=== PATIENT | female | born 1965 | race Caucasian/White ===

== ENCOUNTER → 2018-04-05 | Outpatient (CLI) | payer OTHER ==
[~2018-04-05] MED LIST: CALCIUM PO; FISHOIL PO; MAGNES PO; NEPHROCAPS SOFT1 CAP PO; NIACIN 500 MG500 M1 PO; SYNTHROID PO
== END ==
LOC: M.RAD 09:35
DX: J18.9 Pneumonia, unspecified organism (principal)

== ENCOUNTER → 2018-04-19 | Outpatient (CLI) | payer OTHER | LOC: M.RAD 09:46 | DX: J18.9 Pneumonia, unspecified organism (principal) ==

== ENCOUNTER → 2018-07-28 | Outpatient (CLI) | payer OTHER ==
[2018-07-28 10:42] LABS: ABSOLUTE BASOPHILS 0.1 thou/uL (0.0-0.2); ABSOLUTE EOSINOPHILS 0.2 thou/uL (0.0-0.7); ABSOLUTE LYMPHOCYTES 1.7 thou/uL (0.8-5.3); ABSOLUTE MONOCYTES 0.3 thou/uL (0.0-1.2); ABSOLUTE NEUTROPHILS 3.2 thou/uL (1.6-8.1); BASOPHILS 1.1 %; EOSINOPHILS 4.2 %; HEMATOCRIT 39.7 % (37.0-47.0); HEMOGLOBIN 13.9 gm/dL (12.0-15.0); LYMPHOCYTES 30.1 %; MCV 97.3 fL (80.0-100.0); MPV 7.6 fl. (7.2-11.1); NUCLEATED RBCS 0 /100WBC; PLATELET COUNT* 279 thou/uL (150-400); POLYS 58.6 %; RBC 4.08 mil/uL (4.20-5.00); RDW-CV 13.4 % (10.5-14.5); WBC 5.5 thou/uL (4.0-11.0)
[2018-07-28 10:55] LABS: ALBUMIN 4.3 g/dL (3.4-5.0); ALKALINE PHOSPHATASE 52 U/L (46-116); ANION GAP 12 mmol/L (7-16); BUN 20 mg/dL (7-18); CALCIUM 10.1 mg/dL (8.5-10.1); CHLORIDE 101 mmol/L (98-107); CHOLESTEROL 247 mg/dL (<200); CO2 25 mmol/L (21-32); GLUCOSE 111 mg/dL (70-99); HDL CHOLESTEROL 79 mg/dL (>40); LDL CHOLESTEROL 147 mg/dL (<100); POTASSIUM 4.1 mmol/L (3.5-5.1); SERUM ASSESSMENT Clear; SGOT 20 U/L (15-37); SGPT 31 U/L (30-65); SODIUM 138 mmol/L (136-145); TC:HDL 3.1 Ratio (Not establshd); TOTAL BILIRUBIN 0.5 mg/dL (<0.1-1.0); TOTAL PROTEIN 8.4 g/dL (6.4-8.2); TRIGLYCERIDE 106 mg/dL (<150); VLDL 21 mg/dL (<40)
== END ==
LOC: M.LAB 10:24
PROVIDERS: Family Medicine
DX: I10 Essential (primary) hypertension (principal); E78.2 Mixed hyperlipidemia; E03.9 Hypothyroidism, unspecified; K92.1 Melena; Z87.891 Personal history of nicotine dependence

== ENCOUNTER → 2018-11-30 | Outpatient (CLI) | payer OTHER ==
[2018-11-30 16:52] LABS: ALBUMIN 4.2 g/dL (3.4-5.0); ALKALINE PHOSPHATASE 104 U/L (46-116); CHOLESTEROL 225 mg/dL (<200); DIRECT BILIRUBIN 0.1 mg/dL (<0.1-0.3); HDL CHOLESTEROL 65 mg/dL (>40); LDL CHOLESTEROL 109 mg/dL (<100); SGOT 25 U/L (15-37); SGPT 42 U/L (30-65); TC:HDL 3.5 Ratio (Not establshd); TOTAL BILIRUBIN 0.4 mg/dL (<0.1-1.0); TOTAL PROTEIN 8.4 g/dL (6.4-8.2); TRIGLYCERIDE 256 mg/dL (<150); VLDL 51 mg/dL (<40)
[2018-11-30 16:53] LABS: SERUM ASSESSMENT Clear
[2018-12-01 06:10] LABS: LDL (DIRECT) CHOL 127 mg/dL (0-99)
== END ==
LOC: M.LAB 16:28
PROVIDERS: Family Medicine
DX: I10 Essential (primary) hypertension (principal); E78.2 Mixed hyperlipidemia; E03.9 Hypothyroidism, unspecified

== ENCOUNTER 2019-04-04 11:28 | Emergency (ER) | payer OTHER ==
[~2019-04-04] VITALS: Ht 162.6 cm; Wt 77.1 kg
[2019-04-04] MEDS ORDERED: ALPRAZOLAM 0.0.25 M1 PO (11:43)
[2019-04-04] MEDS ORDERED: CYMBALTA30 MG PO (11:43)
[2019-04-04] MEDS ORDERED: ZESTRIL10 MG PO (11:44)
[2019-04-04] MEDS ORDERED: ZETIA10 MG PO (11:44)
[2019-04-04] MEDS ORDERED: LIVALO2 MG PO (11:45)
[2019-04-04] MEDS ORDERED: OMEPRAZOLE40 MG PO (11:45)
[2019-04-04] MEDS ORDERED: [UNRECOGNIZED DRUG - OTHER] PO (11:45)
[2019-04-04] MEDS ORDERED: CARAFATE1 GM PO (11:45)
[2019-04-04 12:13] LABS: ABSOLUTE BASOPHILS 0.1 thou/uL (0.0-0.2); ABSOLUTE EOSINOPHILS 0.2 thou/uL (0.0-0.7); ABSOLUTE LYMPHOCYTES 2.5 thou/uL (0.8-5.3); ABSOLUTE MONOCYTES 0.4 thou/uL (0.0-1.2); ABSOLUTE NEUTROPHILS 3.2 thou/uL (1.6-8.1); BASOPHILS 1.1 %; EOSINOPHILS 2.8 %; HEMATOCRIT 37.6 % (37.0-47.0); HEMOGLOBIN 13.3 gm/dL (12.0-15.0); LYMPHOCYTES 39.6 %; MCH 33.4 pg (26.0-34.0); MCHC 35.3 g/dL (28.0-37.0); MCV 94.5 fL (80.0-100.0); MONOCYTES 5.6 %; MPV 7.9 fl. (7.2-11.1); NUCLEATED RBCS 0 /100WBC; PLATELET COUNT* 246 thou/uL (150-400); POLYS 50.9 %; RBC 3.98 mil/uL (4.20-5.00); RDW-CV 13.1 % (10.5-14.5); WBC 6.3 thou/uL (4.0-11.0)
[2019-04-04 12:20] LABS: PROTIME 10.2 Seconds (9.20-11.50)
[2019-04-04 12:29] LABS: CALCIUM 9.2 mg/dL (8.5-10.1); CREATININE 0.7 mg/dL (0.6-1.3); POTASSIUM 3.8 mmol/L (3.5-5.1)
[2019-04-04 12:43] LABS: ALBUMIN 3.9 g/dL (3.4-5.0); TOTAL BILIRUBIN 0.6 mg/dL (<0.1-1.0); TOTAL PROTEIN 7.5 g/dL (6.4-8.2)
[2019-04-04 12:57] LABS: INFLUENZA A ANTIGEN Negative (Negative); INFLUENZA B ANTIGEN Negative (Negative)
--- NOTE | 2019-04-04 15:42 | EKG ---
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: : 1965 Requested By: Jeffrey Marquez Order Number: [id number] MD: Amarjit Knott Measurements Intervals [place] Rate: 82 P: 41 AK: 146 QRS: 31 QRSD: 115 T: 19 QT: 379 QTc: 443 Interpretive Statements Sinus rhythm Nonspecific intraventricular conduction delay Borderline T abnormalities, anterior leads Baseline wander in lead(s) V5 No previous ECG available for comparison Electronically Signed On 04-04-2019 15:42:14 STARS ANALYTICAL LEAD by Amarjit Knott [email or web address] <ELECTRONICALLY SIGNED> By: Amrajit Knott MD, [facility] 04/04/19 1542 [id number] [id number] Amarjit Knott MD, FACC /EPI
--- NOTE | 2019-04-04 16:41 | EXE ---
[place] [address] STRESS ECHOCARDIOGRAM Name: GAB EDWARDS Room: [facility]#: [id number] Admission: 04/04/19 Attend Phys: Discharge: Date of : 65 Date of Service: 04/04/19 [facility] Report #: [id number] THIS REPORT FOR: //name// APPROVED REPORT Study performed: 04/04/2019 15:59:20 Exam: Stress Echocardiogram Indication: Dyspnea Patient Location: ER Stress Nurse: Sol Hickman RN Supervising Physician: Ramon Waldron MD Status: routine Ht: 5 ft 4 in HR: 74 bpm BP: 143/109 mmHg Rhythm: NSR Medical History Allergies: morphine Cardiac Risk Factors: Hyperlipidemia, HTN, Tobacco History (Current/Recent), FHX of CAD Procedure The patient underwent an Exercise Stress Test using the Sarmad Protocol. Blood pressure, heart rate, and EKG were monitored. An Echocardiogram was performed by home service technician in four stages in quad fashion. At peak stress, four selected images were obtained and placed side by side with resting images for comparison. Echo Enhancing Agent Indication: Endocardial border delineation Agent(s) / Amount(s) Used: Optison 8 cc Stress Test Details Stress Test: Exercise stress testing was performed using a Sarmad protocol. HR Resting HR: 74 bpm Max Heart Rate (APMHR): 166 bpm Max HR Achieved: 140 bpm Target HR (85% APMHR): 141 bpm % of APMHR: 84 Recovery HR: 95 bpm HR response to stress: Normal HR response [place] [address] STRESS ECHOCARDIOGRAM Name: RACHEL EDWARDSI FELIX Room: [facility]#: [id number] Admission: 04/04/19 Attend Phys: Discharge: Date of : 65 Date of Service: 04/04/19 [facility] Report #: [id number] Resting BP: 143/109 mmHg Max BP: 166/99 mmHg Recovery BP: 157/91 mmHg BP response to stress: Hypertension at baseline, remained consistent through test ECG Resting ECG: Sinus Rhythm Stress ECG: Sinus Tachycardia ST Change: None Arrhythmia: None Recovery ECG: Sinus Rhythm Recovery ST Change: None Recovery Arrhythmia: None Clinical Reason for Termination: Dyspnea, Maximal effort Exercise duration: 3 min 33 sec Highest Stage Achieved: Stage 2: 2.5 mph at 12% grade. Exercise capacity: 5.54 METs The patient exhibited limited exercise tolerance on the standard Sarmad protocol. She had no significant chest pain. She had significant dyspnea on exertion. Stress ECG Conclusion The baseline 12-lead EKG shows sinus rhythm without significant ST segment abnormalities. EKGs obtained during and post exercise stress showed sinus rhythm and sinus tachycardia with no significant ST segment depression compared to baseline. There were no stress-induced arrhythmias. Pre-Stress Echo The resting Echocardiogram showed normal left ventricular contractility with an estimated Ejection Fraction of about 55-60%. Post-Stress Echo The stress Echocardiogram showed normal left ventricular contractility with an estimated Ejection Fraction of about >70%. Conclusion Clinical Response: Indeterminant Exercise Capacity: Below Average Stress ECG Response: Non-ischemic Stress Echo Images: Non-ischemic The patient exhibited poor exercise tolerance with significant dyspnea on exertion. There were no EKG or echo findings to suggest stress-induced ischemia or prior infarct. The [place] [address] STRESS ECHOCARDIOGRAM Name: GAB EDWARDS [id number] Admission: 04/04/19 Attend Phys: Discharge: Date of : 65 Date of Service: 04/04/19 [facility] Report #: [id number] images showed normal LV systolic function with normal wall motion. EKG images obtained post exercise showed normal augmentation of left ventricular systolic function with no evidence of inducible wall motion and mobility. This is a low risk study. Other Information Technically limited study due to poor endocardial definition. <Conclusion> The patient exhibited poor exercise tolerance with significant dyspnea on exertion. There were no EKG or echo findings to suggest stress-induced ischemia or prior infarct. The baseline echocardiogram images showed normal LV systolic function with normal wall motion. EKG images obtained post exercise showed normal augmentation of left ventricular systolic function with no evidence of inducible wall motion and mobility. This is a low risk study. <ELECTRONICALLY SIGNED> By: Ramon Waldron MD, FACC 04/04/19 1640 [id number] [id number] Ramon Waldron MD, FACC /INF
[2019-04-04] MEDS ORDERED: VENTOLIN HFA 1818 GM INH (16:51)
[2019-04-04] MEDS ORDERED: MEDROLDOSEPACK PO (16:51)
[2019-04-04 17:16] VITALS: BP 145/85
== END 2019-04-04 17:17 | disposition home or self-care (01) ==
LOC: M.ERS 11:28
PROVIDERS: Emergency Medicine
DX: J40 Bronchitis, not specified as acute or chronic (principal); K58.9 Irritable bowel syndrome, unspecified; F17.210 Nicotine dependence, cigarettes, uncomplicated; Z88.5 Allergy status to narcotic agent; Z98.890 Other specified postprocedural states

== ENCOUNTER 2019-05-25 13:51 | Emergency (ER) | payer OTHER ==
[~2019-05-25] VITALS: Ht 162.6 cm; Wt 72.6 kg
[~2019-05-25 13:51] MED LIST changes: +ALPRAZOLAM 0.0.25 M1 PO; +CARAFATE1 GM PO; +CYMBALTA30 MG PO; +LIVALO2 MG PO; +MEDROLDOSEPACK PO; +OMEPRAZOLE40 MG PO; +VENTOLIN HFA 1818 GM INH; +ZESTRIL10 MG PO; +ZETIA10 MG PO; +[UNRECOGNIZED DRUG - OTHER] PO
[2019-05-25 14:36] LABS: HEMATOCRIT 43.8 % (37.0-47.0); HEMOGLOBIN 15.7 gm/dL (12.0-15.0); MCH 34.1 pg (26.0-34.0); MCHC 35.9 g/dL (28.0-37.0); MCV 94.9 fL (80.0-100.0); NUCLEATED RBCS 0 /100WBC; PLATELET COUNT* 280 thou/uL (150-400); RBC 4.62 mil/uL (4.20-5.00); RDW-CV 13.6 % (10.5-14.5); WBC 13.4 thou/uL (4.0-11.0)
[2019-05-25 14:43] LABS: CALCIUM 9.8 mg/dL (8.5-10.1); POTASSIUM 3.6 mmol/L (3.5-5.1)
[2019-05-25 14:54] LABS: ALBUMIN 4.9 g/dL (3.4-5.0); MAGNESIUM 1.6 mg/dL (1.8-2.4); TOTAL BILIRUBIN 1.2 mg/dL (<0.1-1.0); TOTAL PROTEIN 9.5 g/dL (6.4-8.2)
[2019-05-25 15:14] LABS: ABSOLUTE BASOPHILS 0.1 thou/uL (0.0-0.2); ABSOLUTE LYMPHOCYTES 0.9 thou/uL (0.8-5.3); ABSOLUTE MONOCYTES 0.3 thou/uL (0.0-1.2); ABSOLUTE NEUTROPHILS 12.1 thou/uL (1.6-8.1); PLATELET ESTIMATE ADEQUATE
[2019-05-25] MEDS ORDERED: ZOFRAN ODT4 MG DISSOLVE ×2 (15:52→15:53)
[2019-05-25 16:07] VITALS: BP 139/94
--- NOTE | 2019-05-26 10:25 | EKG ---
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1965 Requested By: Ulysses Bailey Order Number: [id number] MD: Chriss Brown Measurements Intervals [place] Rate: 103 P: 51 IN: 137 QRS: 54 QRSD: 115 T: 58 QT: 370 QTc: 485 Interpretive Statements Sinus tachycardia Nonspecific intraventricular conduction delay Minimal ST depression, lateral leads Compared to ECG 04/04/2019 11:56:26 ST (T wave) deviation now present Sinus rhythm no longer present Electronically Signed On 05-26-2019 10:24:24 RESEARCH AND EVALUATION ANALYST by Chriss Brown [email or web address] <ELECTRONICALLY SIGNED> By: Chriss Brown MD, [facility] 05/26/19 1024 [id number] 141 Chriss Brown MD, FACC /EPI
== END 2019-05-25 16:08 | disposition home or self-care (01) ==
LOC: M.ERS 13:51
PROVIDERS: Emergency Medicine Emergency Medical Services
DX: A08.4 Viral intestinal infection, unspecified (principal); F17.210 Nicotine dependence, cigarettes, uncomplicated; Z98.890 Other specified postprocedural states; Z88.5 Allergy status to narcotic agent

== ENCOUNTER 2019-12-26 12:12 | Emergency (ER) | payer OTHER ==
[~2019-12-26] VITALS: Ht 162.6 cm; Wt 72.6 kg
[~2019-12-26 12:12] MED LIST changes: +ZOFRAN ODT4 MG DISSOLVE
[2019-12-26] MEDS ORDERED: CRESTOR10 MG PO (12:24)
[2019-12-26] MEDS ORDERED: ZOFRAN ODT4 MG DISSOLVE (13:16)
[2019-12-26 13:35] VITALS: BP 133/72
== END 2019-12-26 13:35 | disposition home or self-care (01) ==
LOC: M.ERS 12:12
DX: B34.9 Viral infection, unspecified (principal); Z20.828 Contact with and (suspected) exposure to other viral communicable diseases; K58.9 Irritable bowel syndrome, unspecified; F17.210 Nicotine dependence, cigarettes, uncomplicated; Z98.890 Other specified postprocedural states; Z88.5 Allergy status to narcotic agent

== ENCOUNTER → 2020-05-22 | Outpatient (CLI) | payer OTHER ==
[~2020-05-22] MED LIST changes: +CRESTOR10 MG PO
[2020-05-22 10:36] LABS: ABSOLUTE BASOPHILS 0.1 thou/uL (0.0-0.2); ABSOLUTE EOSINOPHILS 0.2 thou/uL (0.0-0.7); ABSOLUTE LYMPHOCYTES 1.6 thou/uL (0.8-5.3); ABSOLUTE MONOCYTES 0.4 thou/uL (0.0-1.2); ABSOLUTE NEUTROPHILS 4.9 thou/uL (1.6-8.1); BASOPHILS 1.2 %; EOSINOPHILS 3.2 %; HEMATOCRIT 40.4 % (37.0-47.0); LYMPHOCYTES 21.8 %; MCH 33.1 pg (26.0-34.0); MCHC 34.8 g/dL (28.0-37.0); MCV 95.3 fL (80.0-100.0); MONOCYTES 5.4 %; NUCLEATED RBCS 0 /100WBC; PLATELET COUNT* 231 thou/uL (150-400); POLYS 68.4 %; RBC 4.24 mil/uL (4.20-5.00); RDW-CV 13.1 % (10.5-14.5); WBC 7.1 thou/uL (4.0-11.0)
[2020-05-22 10:54] LABS: ALBUMIN 4.3 g/dL (3.4-5.0); ALKALINE PHOSPHATASE 101 U/L (46-116); ANION GAP 12 mmol/L (7-16); BUN 15 mg/dL (7-18); CHLORIDE 102 mmol/L (98-107); CHOLESTEROL 192 mg/dL (<200); CO2 26 mmol/L (21-32); CREATININE 0.8 mg/dL (0.6-1.3); GLUCOSE 104 mg/dL (70-99); HDL CHOLESTEROL 73 mg/dL (>40); LDL CHOLESTEROL 73 mg/dL (<100); POTASSIUM 4.3 mmol/L (3.5-5.1); SERUM ASSESSMENT Clear; SGOT 21 U/L (15-37); SGPT 38 U/L (30-65); SODIUM 140 mmol/L (136-145); TC:HDL 2.6 Ratio (Not establshd); TOTAL BILIRUBIN 0.7 mg/dL (<0.1-1.0); TRIGLYCERIDE 230 mg/dL (<150); VLDL 46 mg/dL (<40)
[2020-05-22 11:58] LABS: ESR (SEDRATE) 20 mm/hr (0-30)
== END ==
LOC: M.LAB 10:21
PROVIDERS: ATTEND Family Medicine
DX: E78.5 Hyperlipidemia, unspecified (principal); E03.9 Hypothyroidism, unspecified; I10 Essential (primary) hypertension; K62.5 Hemorrhage of anus and rectum; R11.0 Nausea; D80.3 Selective deficiency of immunoglobulin G [IgG] subclasses; K57.92 Diverticulitis of intestine, part unspecified, without perforation or abscess without bleeding

== ENCOUNTER 2020-08-18 09:12 | Emergency (ER) | payer OTHER ==
[~2020-08-18] VITALS: Ht 162.6 cm; Wt 72.6 kg
[2020-08-18] MEDS ORDERED: VITAMIN D250 MCG PO (09:37)
[2020-08-18] MEDS ORDERED: VITAMIN B-121000 MC2 PO (09:38)
[2020-08-18] MEDS ORDERED: FLEXERIL PO (10:03)
[2020-08-18] MEDS ORDERED: MEDROLDOSEPACK PO (10:03)
[2020-08-18 10:35] VITALS: BP 139/87
== END 2020-08-18 10:37 | disposition home or self-care (01) ==
LOC: M.ERS 09:12
DX: M54.5 Low back pain (principal); I10 Essential (primary) hypertension; K58.9 Irritable bowel syndrome, unspecified; F17.210 Nicotine dependence, cigarettes, uncomplicated; Z88.5 Allergy status to narcotic agent; Z98.890 Other specified postprocedural states

== ENCOUNTER → 2020-08-28 | Outpatient (CLI) | payer OTHER ==
[~2020-08-28] MED LIST changes: +FLEXERIL PO; +VITAMIN B-121000 MC2 PO; +VITAMIN D250 MCG PO
== END ==
LOC: M.MRI 08:11
PROVIDERS: ATTEND Nurse Practitioner
DX: M47.816 Spondylosis without myelopathy or radiculopathy, lumbar region (principal); M47.817 Spondylosis without myelopathy or radiculopathy, lumbosacral region